=== PATIENT | male | born 2005 | race Asian ===

== ENCOUNTER 2024-11-01 22:24 | Outpatient (REF) | payer OTHER, SELFPAY | END 2024-11-01 22:25 | disposition home or self-care (01) | LOC: LBN 22:24 | PROVIDERS: Visit Provider Nurse Practitioner Family | DX: S91.301A Unspecified open wound, right foot, initial encounter (principal) | CPT/HCPCS: 87070; 87205 ==

== ENCOUNTER → 2025-01-27 14:25 | Outpatient (CLI) | payer OTHER, SELFPAY ==
--- NOTE | 2025-01-27 15:43 | DI.RAD_ITS ---
Exam(s) XR FOOT RT COMPLETE EXAM: XR FOOT RT COMPLETE CLINICAL HISTORY: Rule out osteomyelitis, open wound rt foot, S91.301A. TECHNIQUE: 2D digital imaging was performed. Three views. COMPARISON: No exams were available for comparison FINDINGS: BONES: No acute fracture is present. No bony destructive lesion is seen. JOINTS: No dislocation present. SOFT TISSUE: Swelling around 1st MTP joint. Swelling lateral to the base of the 5th metatarsal with overlying bandage. No abnormal gas collection or foreign body. IMPRESSION: Soft tissue swelling. No plain film evidence for osteomyelitis DATA REPOSITORY: RADIATION DOSE DELIVERED:
== END ==
LOC: DI 14:26
PROVIDERS: Visit Provider Surgery
DX: S91.301A Unspecified open wound, right foot, initial encounter (principal)
CPT/HCPCS: 73630

== ENCOUNTER 2025-01-27 14:35 | Outpatient (REF) | payer OTHER, SELFPAY | END 2025-01-27 14:36 | disposition home or self-care (01) | LOC: LBN 14:35 | PROVIDERS: Visit Provider Podiatrist | DX: L97.512 Non-pressure chronic ulcer of other part of right foot with fat layer exposed (principal); S91.301A Unspecified open wound, right foot, initial encounter | CPT/HCPCS: 87077; 87070; 87075; 87186; 87205 ==

== ENCOUNTER 2025-02-01 11:39 | Inpatient (IN) | payer OTHER, SELFPAY ==
--- NOTE | 2025-02-01 | DI.MRI_ITS ---
Exam(s) MR LOWER EXTREMITY RT WO/W EXAM: MR LOWER EXTREMITY RT WO/W CLINICAL HISTORY: ulcer R 5th metatarsal, bone palpable, infected. TECHNIQUE: Multiplanar multisequence MRI was performed. CONTRAST MATERIAL: IV Contrast: 10 mL of Dotarem contrast administered. COMPARISON: CR XR FOOT RT COMPLETE from 01/27/2025 FINDINGS: There is artifact seen in the region of the 3rd tarsometatarsal joint without correlate on the patient's x-ray from 01/27/2025. BONES/JOINTS: No evidence of fracture. There is hypointense signal seen on the T1 weighted images in the base of the 5th metatarsal bone. There is corresponding hyperintense signal seen on the T2 weighted images in this region. There is a ulcer on the plantar and lateral aspect of the foot which appears in contact with the adjacent 5th metatarsal bone. There is edema seen in the surrounding soft tissues at the ulcer. There is a peripherally enhancing fluid collection measuring 0.4 x 1.0 cm lateral to the base of the 5th metatarsal bone (series [id number], image 14). The finding is suspicious for small abscess. No joint space narrowing identified. No joint effusion identified. LIGAMENTS: The medial and lateral collateral ligaments are intact. MUSCULOTENDINOUS STRUCTURES: Visualized portion of the planar fascia is unremarkable. There is no evidence of a tendon tear. SOFT TISSUES: Please see the above section under BONES/JOINTS. ENHANCEMENT: Following contrast administration, there is contrast enhancement involving the proximal 3rd of the 5th metatarsal bone. The findings are most suggestive of osteomyelitis. There is mild enhancement surrounding the peroneus brevis tendon at its insertion site onto the 5th metatarsal bone. OTHER FINDINGS: None. IMPRESSION: 1. Ulcer in the subcutaneous tissues at the lateral aspect of the foot adjacent to the 5th metatarsal. 2. Enhancement involving the proximal 3rd of the 5th metatarsal concerning for osteomyelitis. 3. 0.4 x 1.0 cm peripherally enhancing fluid collection lateral to the base of the 5th metatarsal suspicious for small abscess. 4. Mild enhancement surrounding the peroneus brevis tendon at its insertion site onto the 5th metatarsal concerning for infection. 5. Artifact seen in the soft tissues adjacent to the 3rd tarsometatarsal joint without corresponding artifact seen on the plain film. Please correlate clinically. It is located some distance from the ulcer and is likely unrelated. This may reflect prior surgery. DATA REPOSITORY:
[2025-02-01 12:10] VITALS: BP 136/56; PULSE 109; RESP 17; TEMP 36.5; O2SAT 98
[2025-02-01 12:15] VITALS: BP 136/56; PULSE 109; RESP 17; TEMP 36.5; O2SAT 98
--- NOTE | 2025-02-01 12:20 | W.SURGCON ---
Date of service: 02/01/25 Time of Service: 12:21 Assessment and Plan Assessment and plan (1) Ulcer of right foot with fat layer exposed: Status: Acute Assessment and plan: Patient is a 19-year-old male who presents for ongoing evaluation of a wound of his right foot. He has undergone previous debridement and cultures showing pansensitive staph. His wound packing was removed yesterday in the clinic and there was concern for surrounding erythema and edema so he was instructed to present today for further evaluation in the clinic. On discussion with him today he does endorse some decreased appetite but otherwise denies fevers, chills, nausea, vomiting. On exam today he has ongoing erythema and edema of the dorsal aspect of the right foot. There is no evidence of purulence in the wound suggesting the need for further washout or debridement. Given his continuation of symptoms on antibiotics at home it was recommended that he be admitted to the hospital for ongoing wound care and IV antibiotics. Would recommend MRI of right foot to evaluate further for osteomyelitis given chronicity of the wound and ongoing erythema. No plan for further operative debridement at this time, however would recommend packing to right foot wound at least BID and as needed due to saturation. Appreciate hospitalists assistance with admission and IV antibiotics. (2) Open wound of right foot: Status: Acute History of Present Illness Narrative: Patient is a 19-year-old male who has had ongoing evaluation of a chronic wound of the underside of his right foot in the surgical office along with podiatry. He underwent debridement, culture and previous packing of the wound. He also underwent a course of Keflex at home. He was evaluated yesterday in the surgery clinic and given concern for surrounding erythema it was recommended that he follow-up again today for further evaluation. He denies any subjective fevers. He does note however decreased appetite. He has no sensation in this area so denies any pain associated with this. His dressing was changed today in the office. Given ongoing erythema and edema of the wound with oral antibiotics the recommendation was made that he present to the hospital for admission for IV antibiotics and ongoing wound care. Review of Systems Constitutional Constitutional: Denies chills, Denies fatigue and Denies fever(s) Cardiovascular Cardiovascular: Denies chest pain and Denies dyspnea Respiratory Respiratory: Denies dyspnea Gastrointestinal Gastrointestinal: Denies abdominal pain, Denies nausea and Denies vomiting Integumentary/Breasts Skin/Breast: Denies new lesions and Denies rash Endocrine Endocrine: Denies fatigue PFSH All Active Problems Pes cavus of right foot (Acute) Ulcer of right foot with fat layer exposed (Acute) Open wound of right foot (Acute) Hx of spina bifida (Acute) reports decreased sensation to feet and altered gait. Wears orthotics Social History Smoking/Tobacco Use Status: Never Smoking risk assessment performed?: Yes Alcohol Intake: current Alcohol Intake frequency: other Housing: apartment Do you feel safe at home: Yes Do you feel safe in your relationship?: Yes Exam Narrative Exam Narrative: General: Well appearing, no acute distress. Skin: Good turgor HEENT: Normocephalic, atraumatic CV: Regular rate Lungs: Bilateral equal chest rise, non-labored breathing Extremities: Warm, well perfused, right foot wound on plantar aspect of 5th metatarsal with serosanguinous drainage, surrounding edema and erythema of dorsal aspect of foot Psychiatric: Alert and oriented, normal mood and affect Results Last Vital Signs Temp 36.5 C 02/01/25 12:10 Pulse 109 H 02/01/25 12:10 Resp 17 02/01/25 12:10 BP 136/56 L 02/01/25 12:10 Pulse Ox 98 02/01/25 12:10 Labs 02/01/25 11:42 02/01/25 11:42
[2025-02-01] MEDS: Normal Saline Flush 10 ML SYR IVP ×3 (13:04→15:55)
[2025-02-01] MEDS: Gadoterate meglumine 20 ML SYRINGE IJ (13:04)
--- NOTE | 2025-02-01 13:59 | PHA.REVIEW2 ---
Pharmacy Admission Review Admission Clinical Review Admission Pharmacy Review: Ulcer of right foot with fat layer exposed (Acute) Open wound of right foot (Acute) No Known Allergies Allergy (Unverified 02/01/25 10:24) Resuscitation Status Full Code Height 5 ft 6 in Weight 51.029 kg Pharmacy Admission Review Renal Dosing Medications needing adjustments: Reviewed (labs pending) List of meds needing interventions: May need to adjust enoxaparin and cefazolin doses once labs come back Anticoagulation DVT Prophylaxis: Intervened (Per provider - active infection and immobility make him moderate risk) Medications: Enoxaparin (40mg daily) Relevant Labs Electrolytes, C-Reactive P, ESR: Reviewed (labs pending) Cardiac Review BP, HR, EF%: Reviewed (BP 136/56, HR 109) QTc Review QTc: Reviewed (No EKG on file) IV to PO Switch IV Medications: Reviewed (cefazolin) Home Meds Home Med List reviewed: Reviewed Relevent Home Meds Not ordered & why?: oxybutynin - will reach out to provider to see if this is on hold Current Meds Current Medication Order Review: Reviewed Pharmacy Antibiotic Review Relevant Labs: Wound culture from 01/27/25 Surgical Aerobic Culture Preliminary 02/01/25-0850 Day 1 Result ISOLATES BELOW DAY 1 GROWTH MODERATE GROWTH ISOLATE 1 APPEARANCE Mixed Gram Positive Shasha Day 2 Result ISOLATES BELOW DAY 2 GROWTH MODERATE GROWTH ISOLATE 1 APPEARANCE Gram Positive Shasha ISOLATE 1 ACTION SUSCEPTIBILITY TO FOLLOW DAY 2 GROWTH MODERATE GROWTH ISOLATE 2 APPEARANCE Normal Shasha Day 3 Result ISOLATES BELOW DAY 3 GROWTH MODERATE GROWTH ISOLATE 1 APPEARANCE Gram Positive Shasha DAY 3 GROWTH MODERATE GROWTH ISOLATE 2 APPEARANCE Normal Shasha Day 4 Result ISOLATES BELOW DAY 4 GROWTH MODERATE GROWTH ISOLATE 1 APPEARANCE Gram Positive Shasha DAY 4 GROWTH MODERATE GROWTH ISOLATE 2 APPEARANCE Normal Shasha Organism 1 Staphylococcus aureus GROWTH MODERATE GROWTH Organism 2 Normal Shasha GROWTH MODERATE GROWTH Stap grecia Result Gentamicin S Trimethoprim/Sulfamethoxazole S Daptomycin S Erythromycin S Oxacillin S Vancomycin S Pharmacy Antibiotic Activity: C/S review and Reviewed, no change Comments: Patient is on cefazolin, day 1, for cellulitis.
--- NOTE | 2025-02-01 14:42 | W.PM.HP.N ---
Date of service: 02/01/25 Time of Service: 16:23 Assessment and Plan Assessment and plan (1) Ulcer of right foot with fat layer exposed: Status: Acute Assessment and plan: As per HPI Growing pansensitive MSSA On Cefazolin IV MRI RLE: IMPRESSION: 1. Ulcer in the subcutaneous tissues at the lateral aspect of the foot adjacent to the 5th metatarsal. 2. Enhancement involving the proximal 3rd of the 5th metatarsal concerning for osteomyelitis. 3. 0.4 x 1.0 cm peripherally enhancing fluid collection lateral to the base of the 5th metatarsal suspicious for small abscess. 4. Mild enhancement surrounding the peroneus brevis tendon at its insertion site onto the 5th metatarsal concerning for infection. 5. Artifact seen in the soft tissues adjacent to the 3rd tarsometatarsal joint without corresponding artifact seen on the plain film. Please correlate clinically. It is located some distance from the ulcer and is likely unrelated. This may reflect prior surgery. CBC - no actionable findings will trend CMP- unremarkable -will trend CRP 2.16- will trend Daily dressing change with packing Surgery consult - Seen by Dr Andino today Orthopedic consult (2) Cellulitis of right foot: Status: Acute Assessment and plan: As above (3) Hx of spina bifida: Status: Acute Assessment and plan: Noted - and most likely linked to reduced sensation to feet Discharge Planning Discharge Planning: Not yet determined History of Present Illness History of Present Illness Chief Complaint: Right foot wound and cellulitis Narrative: This 19 yo male patient with a past medical history of spina bifida and loss of sensation to his lower extremities, right foot wound starting 4 months ago after he pulled the skin off (?from ulcer caused by a stone in his shoe) presented today for direct admission after being seen in the outpatient surgical clinic by Dr. Shane garcia s/p debridment on 01/31/25. The patient had been seen since 11/24/24 at [facility] surgical associate and was seen by Dr. Woodard on 01/27/25 with completion of excisionally debridement , removal of all necrotic tissue, full thickness including subcutaneous tissue and dressed; cephalexin ordered a the time. Dr Andino saw the patient on 01/31 25 for ongoing erythema and edema; irrigation with sterile saline completed with new wound packing. Wound grew pansensitive MSSA. Blood work and MRI ordered and results pending. The patient denied fever, chills, headache , change in vision, chest pain, SOB, nausea, vomiting, diarrhea or dysuria. Reporting reduced mobility and following non-weight bearing instruction fro podiatry. Full code status confirmed. Review of Systems All systems reviewed & are unremarkable except as noted in HPI and below PFSH All Active Problems (Updated 02/01/25 @ 16:38 by Griselda Gamble APRN) Cellulitis of right foot (Acute) Pes cavus of right foot (Acute) Ulcer of right foot with fat layer exposed (Acute) Open wound of right foot (Acute) Hx of spina bifida (Acute) reports decreased sensation to feet and altered gait. Wears orthotics Social History Smoking/Tobacco Use Status: Never Smoking risk assessment performed?: Yes Alcohol Intake: current Alcohol Intake frequency: other Housing: apartment Do you feel safe at home: Yes Do you feel safe in your relationship?: Yes Meds Allergies and Home Medications Allergies Allergy/AdvReac Type Severity Reaction Status Date / Time No Known Allergies Allergy Unverified 02/01/25 10:24 Home Medications ?Medication ?Instructions ?Recorded ?Confirmed ?Type aspirin 325 mg tablet 325 mg PO DAILY PRN 02/01/25 02/01/25 History oxybutynin chloride 5 mg tablet 5 mg PO DAILY 02/01/25 02/01/25 History polyethylene glycol 3350 17 17 g PO DAILY 02/01/25 02/01/25 History gram/dose oral powder (Miralax) Exam Narrative Exam Narrative: 19 year old male looking younger than stated age, in no acute distress, unlabored breathing , clear lungs, S1, S2 regular no murmur , abdomen is non-distended , soft and non-tender, bowel sounds are present, R foot with distal erythema and edema - wound to lateral aspect of sole below the fifth metatarsal bone with mepilex with minimal sero-sanguinous dressing , packing in place and wound periphery appears navy in color - no mal odor and purulent drainage Results Labs 02/01/25 16:05 02/01/25 16:05 Last Vital Signs Temp 36.5 C 02/01/25 12:15 Pulse 109 H 02/01/25 12:15 Resp 17 02/01/25 12:15 BP 136/56 L 02/01/25 12:15 Pulse Ox 98 02/01/25 12:15 VTE Prohylaxis Risk Level: Moderate/High Risk Contraindications: None Prophylaxis: Pharmacologic (LMW heparin for primary VTE prevention in low-weight patients (=55 kg or body mass index [BMI] <18 kg/m2) as per UTD) PAWSS Have you Been Recently Intoxicated or Drunk Within the Last 30 days?: No Have you Ever Experienced Previous Episodes of Alcohol Withdrawal?: No Have you ever Experienced Withdrawal Seizures?: No Have you ever Experienced Delirium Tremens(DT)s?: No Have you ever undergone Alcohol Rehabilitation Treatment (i.e, inpt ot outpatient treatment programs)?: No Have you ever Experienced Blackouts?: No Have you ever Combined Alcohol with other Downers within the last 90 days?: No Have you ever Combined Alcohol with any other Substance of Abuse during the last 90 days?: No Positive Blood Alcohol level on Presentation? [PCS.BAL]: No Evidence of Increased Autonomic Activity (i.e. HR>120, tremor, sweating, agitation, nausea)?: No Result: 0 Time Spent Time spent with Patient: >75 minutes Time was spent: preparing to see the patient(eg.review tests), obtaining and/or reviewing separately otained hiistory, ordering medications,tests, procedures, referring, communicating with other health residential caregiver, indepentently interpreting results, counseling the patient, care coordination and other
[2025-02-01] MEDS: ceFAZolin 2 GM/50 ML BAG IVPB (14:51)
--- NOTE | 2025-02-01 15:38 | W.SURGCON ---
Date of service: 02/01/25 Time of Service: 15:38 History of Present Illness History of Present Illness Chief Complaint: Chronic foot wound Narrative: Aiden is 19 years old. He is well-known to me from his outpatient visits. He developed a wound on the lateral, and bottom portion of his foot, essentially the underside of the fifth metatarsal head back in November. The exact mechanism is uncertain, but he has some gait abnormalities associated with history of spina bifida, and is insensate in the foot, and suspects this may have been some minor trauma related to his foot wear, and some pressure ulceration. He was first seen in our office in the midportion of November. PFSH All Active Problems Pes cavus of right foot (Acute) Ulcer of right foot with fat layer exposed (Acute) Open wound of right foot (Acute) Hx of spina bifida (Acute) reports decreased sensation to feet and altered gait. Wears orthotics Social History Smoking/Tobacco Use Status: Never Smoking risk assessment performed?: Yes Alcohol Intake: current Alcohol Intake frequency: other Housing: apartment Do you feel safe at home: Yes Do you feel safe in your relationship?: Yes Results Last Vital Signs Temp 97.7 F 02/01/25 12:15 Pulse 109 H 02/01/25 12:15 Resp 17 02/01/25 12:15 BP 136/56 L 02/01/25 12:15 Pulse Ox 98 02/01/25 12:15 Labs 02/01/25 11:42 02/01/25 11:42
[2025-02-01] MEDS: Normal Saline 100 ML (15:39)
[2025-02-01 16:11] LABS: Abs Immature Grans 0.07 10^3/uL (0.0-0.06); HCT 43.1 % (40.0-50.0); HGB 14.5 g/dL (13.5-17.5); Immature Grans % 0.8 %; MCH 28.5 pg (27.0-33.0); MCHC 33.6 % (32.0-36.0); MCV 85 fL (80-95); MPV 8.5 fL (8.0-11.0); Platelet Count 308 10^3/uL (130-400); RBC 5.09 10^6/uL (4.36-5.78); RDW 11.7 % (11.8-14.1); RDW-SD 35.7 fL; WBC 8.62 10^3/uL (4.4-10.8)
[2025-02-01 16:34] LABS: C-Reactive Protein 2.16 mg/dL (<=0.50)
[2025-02-01 17:13] LABS: ALT 16 U/L (10-49); AST 21 U/L (<34); Albumin 4.6 g/dL (3.2-5.0); Alkaline Phosphatase 72 U/L (46-116); Anion Gap 8.4 mmol/L (3-11); Bilirubin, Total 0.4 mg/dL (0.2-1.2); CO2 28.6 mmol/L (20.0-31.0); Calcium 9.4 mg/dL (8.3-10.6); Chloride 104 mmol/L (98-107); Glucose 94 mg/dL (74-106); Potassium 4.5 mmol/L (3.5-5.1); Sodium 141 mmol/L (136-145); Total Protein 8.2 g/dL (5.7-8.2)
[2025-02-01 17:37] LABS: BUN 14 mg/dL (9-23)
[2025-02-01] MEDS: Polyethylene Glycol 3350 17 GM PACKET PO (20:15)
[2025-02-01] MEDS: PIPERACILLIN/TAZO 3.375 GM in Normal Saline 50 ML IVPB (20:16)
[2025-02-01 20:33] VITALS: BP 114/62; PULSE 73; TEMP 37; O2SAT 100
[2025-02-01] MEDS: Oxybutynin 5 MG TAB PO (21:57)
[2025-02-02] MEDS: PIPERACILLIN/TAZO 3.375 GM in Normal Saline 50 ML IVPB ×4 (04:05→22:34)
[2025-02-02 06:53] LABS: Abs Immature Grans 0.09 10^3/uL (0.0-0.06); HCT 38.9 % (40.0-50.0); HGB 13.2 g/dL (13.5-17.5); Immature Grans % 1.1 %; MCH 28.9 pg (27.0-33.0); MCHC 33.9 % (32.0-36.0); MCV 85 fL (80-95); MPV 8.7 fL (8.0-11.0); Platelet Count 262 10^3/uL (130-400); RBC 4.57 10^6/uL (4.36-5.78); RDW 11.7 % (11.8-14.1); RDW-SD 35.9 fL; WBC 8.05 10^3/uL (4.4-10.8)
[2025-02-02 06:59] LABS: ESR 16 mm/hr (0-15)
[2025-02-02 07:06] LABS: C-Reactive Protein 1.18 mg/dL (<=0.50)
[2025-02-02 07:07] LABS: Anion Gap 8.3 mmol/L (3-11); BUN 15 mg/dL (9-23); CO2 26.7 mmol/L (20.0-31.0); Calcium 8.9 mg/dL (8.3-10.6); Chloride 107 mmol/L (98-107); Glucose 92 mg/dL (74-106); Potassium 4.3 mmol/L (3.5-5.1); Sodium 142 mmol/L (136-145)
[2025-02-02 08:14] VITALS: BP 117/71; PULSE 67; RESP 17; TEMP 37.1; O2SAT 98
--- NOTE | 2025-02-02 08:20 | W.PM.PROGNOT ---
Date of Service Date of service: 02/02/25 Time of Service: 11:17 Assessment and Plan Assessment and plan (1) Cellulitis of right foot: Status: Acute Assessment and plan: Patient is a 19-year-old male who presents for ongoing evaluation of a wound of his right foot. He has undergone previous debridement and cultures showing pansensitive staph. He was admitted to the hospital yesterday given concern for ongoing erythema and edema of the foot related to this wound. He remains afebrile and hemodynamically stable overnight. On exam today the erythema and edema of the dorsal aspect of the foot is slightly improved. He did have an MRI yesterday concerning for osteomyelitis. His case was discussed with orthopedics who did not feel as though further debridement was necessary at this time and to continue antibiotics and local wound care and monitor closely. Would recommend ongoing twice daily and as needed packing changes and continuing IV antibiotics. (2) Ulcer of right foot with fat layer exposed: Status: Acute Subjective Subjective Interval history since last seen: He states he is doing well this morning. Denies any fevers or chills overnight. He has been able to tolerate a regular diet. He notes that the swelling and redness of his foot has improved. Exam Narrative Exam Narrative: General: Well appearing, no acute distress. Skin: Good turgor HEENT: Normocephalic, atraumatic CV: Regular rate Lungs: Bilateral equal chest rise, non-labored breathing Extremities: Warm, well perfused, right foot wound on plantar aspect of 5th metatarsal with dressing in place, improved surrounding edema and erythema of dorsal aspect of foot Psychiatric: Alert and oriented, normal mood and affect Objective Last Vital Signs Temp 37.1 C 02/02/25 08:14 Pulse 67 02/02/25 08:14 Resp 17 02/02/25 08:14 BP 117/71 02/02/25 08:14 Pulse Ox 98 02/02/25 08:14 Laboratory Results - last 24 hr 02/01/25 02/02/25 16:05 06:23 WBC 8.62 8.05 RBC 5.09 4.57 Hgb 14.5 13.2 L Hct 43.1 38.9 L MCV 85 85 MCH 28.5 28.9 MCHC 33.6 33.9 RDW 11.7 L 11.7 L Plt Count 308 262 MPV 8.5 8.7 Immature Gran % 0.8 1.1 Neutrophils % 71.5 62.8 Lymphocytes % 14.0 16.8 Monocytes % 5.9 6.3 Eosinophils % 6.8 11.8 Basophils % 1.0 1.2 Nucleated RBC % 0.0 0.0 Absolute Neutrophils 6.15 5.05 Absolute Lymphocytes 1.21 1.35 Absolute Monocytes 0.51 0.51 Absolute Eosinophils 0.59 0.95 H Absolute Basophils 0.09 0.10 ESR 16 H Sodium 141 142 Potassium 4.5 4.3 Chloride 104 107 Carbon Dioxide 28.6 26.7 Anion Gap 8.4 8.3 BUN 14 15 Creatinine 0.90 0.97 Est GFR (CKD-EPI 2020) 105.55 96.81 Glucose 94 92 Calcium 9.4 8.9 Total Bilirubin 0.4 AST 21 ALT 16 Alkaline Phosphatase 72 C-Reactive Protein 2.16 H 1.18 H Total Protein 8.2 Albumin 4.6 PAWSS Have you Been Recently Intoxicated or Drunk Within the Last 30 days?: No Have you Ever Experienced Previous Episodes of Alcohol Withdrawal?: No Have you ever Experienced Withdrawal Seizures?: No Have you ever Experienced Delirium Tremens(DT)s?: No Have you ever undergone Alcohol Rehabilitation Treatment (i.e, inpt ot outpatient treatment programs)?: No Have you ever Experienced Blackouts?: No Have you ever Combined Alcohol with other Downers within the last 90 days?: No Have you ever Combined Alcohol with any other Substance of Abuse during the last 90 days?: No Positive Blood Alcohol level on Presentation? [PCS.BAL]: No Evidence of Increased Autonomic Activity (i.e. HR>120, tremor, sweating, agitation, nausea)?: No Result: 0 VTE Prohylaxis Risk Level: Moderate/High Risk Contraindications: None Prophylaxis: Pharmacologic (LMW heparin for primary VTE prevention in low-weight patients (=55 kg or body mass index [BMI] <18 kg/m2) as per UTD) Time Spent with Patient Time Spent with Patient: <25 minutes Time was spent: preparing to see the patient(eg.review tests), obtaining and/or reviewing separately otained hiistory, counseling the patient and care coordination
[2025-02-02] MEDS: Enoxaparin 30 MG/0.3 ML SYR SC (10:12)
--- NOTE | 2025-02-02 10:23 | INITIAL_ITS ---
Date of service: 02/02/25 Time of Service: 10:23 Care Management Initial Assmt Initial Assessment Reason for Hospitalization: cellulitis foot wound Functional Status/Living Situation Patient Presentation: Aiden was sitting up on the edge of his bed when CM met with him. He had a friend visiting, who he stated that he is comfortable with her staying in the room during the conversation. 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 He expressed some frustration about being in the hospital, but was very pleasant and appropriate. He stated that he has been out of work due to the foot injury, and that he already received a note from the podiatry office; CM offered a return to work note, if needed. Aiden stated that he does not have a PCP, but is actively followed by podiatry. CM discussed the process for him to obtain a PCP, but also informed him that he may have a hospital follow up with the provider who was instructional paraprofessional when he arrived, Caitie Beltran from [facility]. Per provider, Aiden is currently on IV antibiotics, and his abx course is unclear at this time. An ortho consult was placed to help determine/manage his plan of care. Aiden is looking forward to returning home, and likely will not require community services, dependent on his abx course. CM will continue to follow. 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) Instrumental Activities of Daily Living (ADLs): Independent Medications Medication Management: No Issues/Barriers identified Advance Directives Advance Directives: Do you have an Advance Directive: N , 12:35 AD On File at [facility]: N 02/01/25, 12:35 Date Asked 02/01/25 02/01/25, 12:35 AD Date Reviewed COLST On File at [facility] COLST Date Scanned Code Status Resuscitation Status Full Code Insurance Coverage/Financial Issues Insurance: [employer] systems Care Team Visit Care Team Role Provider Type Griselda Gamble APRN MD [facility] STAFF PHYSICIAN Unknown Unknown Primary Care Provider STAFF PHYSICIAN Gavin Santos MD Other Providers [facility] STAFF PHYSICIAN Deysi Lynn MD Other Providers [facility] STAFF PHYSICIAN Aiden Arriaga Admit Provider [facility] STAFF PHYSICIAN Attending Provider Discharge Potential Discharge Needs: PCP F/U Appt (bilingual call center representative provider for F/U appt, Caitie Beltran, [facility]) and Surgical F/U Appt Anticipated Barriers to Discharge: Medical Status Patient/Family Education Needs: Review discharge instructions, discuss Ask Me Three Transportation: Private vehicle Plan: Aiden'rosaura hospital course is not clear at this time, awaiting determination of antibiotic course. He will likely return home with no new services once medically stable. He will transport home via private vehicle by a friend. He will follow up with podiatry and his discharge plan of care. CM will continue to follow. Social Determinants of Health Screening Social Determinants of health last assessed in clinic: 02/02/25 Will the Patient Participate in the Screening?: Yes Do you worry about having a steady place to live?: no Problems where you live: no known problems In the past 12 months, have you had to go without electric, gas, oil or water in your home?: no 1. Within the past 12 months, we worried whether our food would run out before we got money to buy more.: Don't know/refused 2. Within the past 12 months, the food we bought just didn't last and we didn't have money to get more.: Don't know/refused Has lack of transportation kept you from medical appointments or from doing things needed for daily living?: no Has anyone in your life made you feel unsafe or unsupported?: no How hard is it for you to pay for the very basics like food, housing, medical care, and heating? Would you say it is:: Not hard at all Do you want help finding or keeping work or a job?: I do not need or want help If for any reason you need help with day-to-day activities such as bathing, preparing meals, shopping, managing finances, etc., do you get the help you need?: I don?t need any help How often do you feel lonely or isolated from those around you?: Never Do you speak a language other than Italian at home?: No PFSH All Active Problems (Updated 02/01/25 @ 16:38 by Griselda Gamble APRN) Cellulitis of right foot (Acute) Pes cavus of right foot (Acute) Ulcer of right foot with fat layer exposed (Acute) Open wound of right foot (Acute) Hx of spina bifida (Acute) reports decreased sensation to feet and altered gait. Wears orthotics Social History Smoking/Tobacco Use Status: Never Smoking risk assessment performed?: Yes Alcohol Intake: current Alcohol Intake frequency: other Housing: apartment Do you feel safe at home: Yes Do you feel safe in your relationship?: Yes
--- NOTE | 2025-02-02 11:14 | W.PM.PROGNOT ---
Date of Service Date of service: 02/02/25 Time of Service: 11:14 Assessment and Plan Assessment and plan (1) Ulcer of right foot with fat layer exposed: Start date: 02/02/25 Start time: 16:53 Status: Acute Assessment and plan: As per HPI Growing pansensitive staph aureus initially in addition to GPC anaerobes now On Cefazolin IV initially - transition to Zosyn 02/01/25 MRI RLE: IMPRESSION: 1. Ulcer in the subcutaneous tissues at the lateral aspect of the foot adjacent to the 5th metatarsal. 2. Enhancement involving the proximal 3rd of the 5th metatarsal concerning for osteomyelitis. 3. 0.4 x 1.0 cm peripherally enhancing fluid collection lateral to the base of the 5th metatarsal suspicious for small abscess. 4. Mild enhancement surrounding the peroneus brevis tendon at its insertion site onto the 5th metatarsal concerning for infection. 5. Artifact seen in the soft tissues adjacent to the 3rd tarsometatarsal joint without corresponding artifact seen on the plain film. Please correlate clinically. It is located some distance from the ulcer and is likely unrelated. This may reflect prior surgery. CBC - no actionable findings will trend Trend metabolic panel and CBC CRP 2.16- will trend Daily dressing change with packing Ongoing surgery consult - Seen by Dr Lynn-BID dressing change Orthopedic consult- IV antibiotics , no recommendation for Sx (2) Cellulitis of right foot: Start date: 02/02/25 Start time: 16:54 Status: Acute Assessment and plan: As above (3) Hx of spina bifida: Start date: 02/02/25 Start time: 16:54 Status: Acute Assessment and plan: Noted - and most likely linked to reduced sensation to feet Subjective Subjective Patient reports: no new complaints, tolerating liquids well, tolerating a regular diet, voiding w/o difficulty and bowel movement; denies nausea, vomiting, shortness of breath or fever Exam Narrative Exam Narrative: 19 year old male looking younger than stated age, w/o acute distress,, S1, S2 regular no murmur , abdomen is non-distended , soft and non-tender, bowel sounds are present, resolving erythema to distal R foot with improving edema - DCI dressing to wound to lateral aspect of sole below the fifth metatarsal bone with mepilex - no malodor Objective Last Vital Signs Temp 37.1 C 02/02/25 08:14 Pulse 67 02/02/25 08:14 Resp 17 02/02/25 08:14 BP 117/71 02/02/25 08:14 Pulse Ox 98 02/02/25 08:14 Laboratory Results - last 24 hr 02/01/25 02/02/25 16:05 06:23 WBC 8.62 8.05 RBC 5.09 4.57 Hgb 14.5 13.2 L Hct 43.1 38.9 L MCV 85 85 MCH 28.5 28.9 MCHC 33.6 33.9 RDW 11.7 L 11.7 L Plt Count 308 262 MPV 8.5 8.7 Immature Gran % 0.8 1.1 Neutrophils % 71.5 62.8 Lymphocytes % 14.0 16.8 Monocytes % 5.9 6.3 Eosinophils % 6.8 11.8 Basophils % 1.0 1.2 Nucleated RBC % 0.0 0.0 Absolute Neutrophils 6.15 5.05 Absolute Lymphocytes 1.21 1.35 Absolute Monocytes 0.51 0.51 Absolute Eosinophils 0.59 0.95 H Absolute Basophils 0.09 0.10 ESR 16 H Sodium 141 142 Potassium 4.5 4.3 Chloride 104 107 Carbon Dioxide 28.6 26.7 Anion Gap 8.4 8.3 BUN 14 15 Creatinine 0.90 0.97 Est GFR (CKD-EPI 2020) 105.55 96.81 Glucose 94 92 Calcium 9.4 8.9 Total Bilirubin 0.4 AST 21 ALT 16 Alkaline Phosphatase 72 C-Reactive Protein 2.16 H 1.18 H Total Protein 8.2 Albumin 4.6 PAWSS Have you Been Recently Intoxicated or Drunk Within the Last 30 days?: No Have you Ever Experienced Previous Episodes of Alcohol Withdrawal?: No Have you ever Experienced Withdrawal Seizures?: No Have you ever Experienced Delirium Tremens(DT)s?: No Have you ever undergone Alcohol Rehabilitation Treatment (i.e, inpt ot outpatient treatment programs)?: No Have you ever Experienced Blackouts?: No Have you ever Combined Alcohol with other Downers within the last 90 days?: No Have you ever Combined Alcohol with any other Substance of Abuse during the last 90 days?: No Positive Blood Alcohol level on Presentation? [PCS.BAL]: No Evidence of Increased Autonomic Activity (i.e. HR>120, tremor, sweating, agitation, nausea)?: No Result: 0 VTE Prohylaxis Risk Level: Moderate/High Risk Contraindications: None Prophylaxis: Pharmacologic (LMW heparin for primary VTE prevention in low-weight patients (=55 kg or body mass index [BMI] <18 kg/m2) as per UTD) Time Spent with Patient Time Spent with Patient: >50 minutes Time was spent: preparing to see the patient(eg.review tests), obtaining and/or reviewing separately otained hiistory, ordering medications,tests, procedures, referring, communicating with other health client care coordinator, indepentently interpreting results, counseling the patient, care coordination and other
[2025-02-02] MEDS: Normal Saline Flush 10 ML SYR IVP (16:59)
[2025-02-02] MEDS: Oxybutynin 5 MG TAB PO (20:33)
[2025-02-02 20:42] VITALS: BP 120/74; PULSE 84; RESP 16; TEMP 36.8; O2SAT 97
[2025-02-03] MEDS: PIPERACILLIN/TAZO 3.375 GM in Normal Saline 50 ML IVPB (04:45)
[2025-02-03 08:08] VITALS: BP 118/60; PULSE 71; RESP 16; TEMP 37.2; O2SAT 99
[2025-02-03] MEDS: Enoxaparin 30 MG/0.3 ML SYR SC (09:33)
--- NOTE | 2025-02-03 11:30 | DSE_ITS ---
Date of service: 02/03/25 Time of Service: 11:30 DS: Diagnosis Discharge Diagnosis (1) Osteomyelitis of right foot: Status: Acute (2) Ulcer of right foot with fat layer exposed: Status: Acute (3) Cellulitis of right foot: Status: Acute (4) Hx of spina bifida: Status: Chronic Discharge Plan Disposition Patient Disposition: Home Anticipated Discharge Date/Time: 02/03/25 13:00 Condition: Improving Discharge Details Reason For Visit: Cellulitis Foot Wound Admit Date/Time: 02/01/25 11:39 Admit Provider: Aiden Arriaga Attending Provider: Aiden Arriaga Primary Care Provider: Unknown,Unknown Hospital Course Hospital Course: This 19 yo male patient with a past medical history of spina bifida and loss of sensation to his lower extremities, right foot wound starting 4 months ago after he pulled the skin off (?from ulcer caused by a stone in his shoe) presented on 02/01/2025 with a direct admission status -post outpatient surgical clinic visit with Dr. Lynn for a follow-up on the wound debridement completed on 01/31/25.. The patient had been seen since 11/24/24 at [facility] seen by Dr. Woodard on 01/27/25 with completion of excisionally debridement , removal of all necrotic tissue, full thickness including subcutaneous tissue and dressed; cephalexin ordered a the time. Dr Andino saw the patient on 01/31 25 for ongoing erythema and edema; irrigation with sterile saline completed with new wound packing. Wound grew pansensitive staphylococcus aureus. The patient denied fever, chills or other symptomatology pointing to systemic infection and he was admitted to the medical surgical floor by the hospitalist service and started on cefazolin. MRI showed proximal 3rd of the 5th metatarsal concerning for osteomyelitis, a 0.4 x 1.0 cm peripherally enhancing fluid collection lateral to the base of the 5th metatarsal suspicious for small abscess, and mild enhancement surrounding the peroneus brevis tendon at its insertion site onto the 5th metatarsal concerning for infection. Orthopedic consultation with no recommendation for surgery but modified antibiotics to piperacillin tazobactam. Wound culture grew gram positive anaerobes and gram negative rods and antibiotic regimen adjusted to levofloxacin, rifaximin and metronidazole on which the patient will be discharged. Ongoing surgical consultation with no plan for surgery at this time, but patient could contact the office if concerns developed. The patient has a follow-up appointment with Dr. Woodard on 02/08/2025 for further management and will need a follow-up with his new PCP as soon as established with the assistance of the care management team. The patient is hemodynamically stable, afebrile and has to maintain non-weight bearing precautions as instructed by podiatry and continue twice a day dressing change as per completed education by RN after discharge today. Discussed with Dr. Cooper Home Meds and New Rx's Prescriptions: New levofloxacin 750 mg Tablet 750 mg PO QAM Qty: 30 0RF Rx Instructions: Refill for completion of 6 weeks of therapy as per Electronic Integrated Systems Mechanic metronidazole 500 mg Tablet 500 mg PO Q8H Qty: 90 0RF Rx Instructions: Refill as per podiatry rifampin 300 mg Capsule 600 mg PO DAILY Qty: 30 0RF Rx Instructions: Refill as per podiatry Bio-K plus 50 billion cell capsule,delayed release(DR/EC) 1 cap PO DAILY Qty: 30 0RF Continued aspirin 325 mg tablet 325 mg PO DAILY PRN polyethylene glycol 3350 [Miralax] 17 gram/dose powder 17 g PO DAILY oxybutynin chloride 5 mg tablet 5 mg PO DAILY Discharge Instructions Stand Alone Forms: Portal Information Referrals: Maria Teresa Woodard DPM [[facility] STAFF PHYSICIAN, Podiatry] Referral Note: Follow-up on 02/08/2025 as scheduled Unknown,Unknown [Primary Care Provider, Unknown] Referral Note: Follow-up with PCP within 7 to 10 days Activity:: As per PRODUCTION CONTROL COORDINATOR -NWB crutches Equipment/Supplies:: Crutches Diet:: As Tolerated Discharge Orders Discharge Orders: Discharge Order (Routine); Ordered 02/03/25 Ordered By: Griselda Gamble DS: Summary Time Spent with Patient providing and/or coordinating discharge services: Greater than 30 minutes Status at Discharge Functional status at discharge: uses cane/walker (crutches) Overall status at discharge: patient is progressing back to baseline Mental Status: mental status grossly normal Speech and Movement: speech and movement normal Mood: congruent mood Affect: normal affect Exam Narrative Exam Narrative: 19 year old male looking younger than stated age, w/o acute distress,, S1, S2 regular no murmur , abdomen is non-distended , soft and non-tender, bowel sounds are present, resolving erythema to distal R foot with minimal edema - DCI dressing to wound to lateral aspect of sole below the fifth metatarsal bone with packing and mepilex - no purulence no malodor wound bed w granulation tissue no slough. Psych Mental Status: mental status grossly normal Speech and Movement: speech and movement normal Mood: congruent mood Affect: normal affect DS: Data Vitals/I&O Vitals and I&O: Vital Signs Temperature 37.2 C 02/03/25 08:08 Temperature Source Temporal Artery Scan 02/03/25 08:08 Pulse 71 02/03/25 08:08 Respiratory Rate 16 02/03/25 08:08 Respiratory Effort Normal 02/01/25 12:15 Respiratory Depth Normal 02/01/25 12:15 Respiratory Pattern Normal 02/01/25 12:15 Blood Pressure 118/60 02/03/25 08:08 Blood Pressure Mean 79 02/03/25 08:08 Pulse Oximetry 99 02/03/25 08:08 Oxygen Delivery Method Room Air 02/03/25 08:08 Oxygen Flow Rate 0 02/03/25 08:08 Pain Level 0 02/03/25 08:08 Intake & Output 02/02/25 02/02/25 02/03/25 11:59 23:59 11:59 Intake Total 100 / 880 780 / 880 510 / 510 Balance 100 / 880 780 / 880 510 / 510 Intake: IV 100 / 200 100 / 200 50 / 50 Oral 680 / 680 460 / 460 Other: Urine Color Yellow Yellow Yellow Urine Appearance Clear Clear Clear Urine Odor Normal Normal Normal Comment Voids independently in the toilet. Voids independently in the toilet. Data Completed and Pending Pending Labs at Discharge: 02/01/25 02/02/25 16:05 06:23 WBC 8.62 8.05 RBC 5.09 4.57 Hgb 14.5 13.2 L Hct 43.1 38.9 L MCV 85 85 MCH 28.5 28.9 MCHC 33.6 33.9 RDW 11.7 L 11.7 L Plt Count 308 262 MPV 8.5 8.7 Immature Gran % 0.8 1.1 Neutrophils % 71.5 62.8 Lymphocytes % 14.0 16.8 Monocytes % 5.9 6.3 Eosinophils % 6.8 11.8 Basophils % 1.0 1.2 Nucleated RBC % 0.0 0.0 Absolute Neutrophils 6.15 5.05 Absolute Lymphocytes 1.21 1.35 Absolute Monocytes 0.51 0.51 Absolute Eosinophils 0.59 0.95 H Absolute Basophils 0.09 0.10 ESR 16 H Sodium 141 142 Potassium 4.5 4.3 Chloride 104 107 Carbon Dioxide 28.6 26.7 Anion Gap 8.4 8.3 BUN 14 15 Creatinine 0.90 0.97 Est GFR (CKD-EPI 2020) 105.55 96.81 Glucose 94 92 Calcium 9.4 8.9 Total Bilirubin 0.4 AST 21 ALT 16 Alkaline Phosphatase 72 C-Reactive Protein 2.16 H 1.18 H Total Protein 8.2 Albumin 4.6 PFSH All Active Problems (Updated 02/03/25 @ 12:11 by Griselda Gamble APRN) Osteomyelitis of right foot (Acute) Cellulitis of right foot (Acute) Pes cavus of right foot (Acute) Ulcer of right foot with fat layer exposed (Acute) Open wound of right foot (Acute) Hx of spina bifida (Chronic) reports decreased sensation to feet and altered gait. Wears orthotics Social History Smoking/Tobacco Use Status: Never Smoking risk assessment performed?: Yes Alcohol Intake: current Alcohol Intake frequency: other Housing: apartment Do you feel safe at home: Yes Do you feel safe in your relationship?: Yes Time Spent with Patient Time Spent with Patient: >85 minutes Time was spent: preparing to see the patient(eg.review tests), obtaining and/or reviewing separately otained hiistory, ordering medications,tests, procedures, referring, communicating with other health career representative, indepentently interpreting results, counseling the patient, care coordination and other
[2025-02-03] MEDS: rifAMPin 300 MG CAP 600 MG PO (11:57)
[2025-02-03] MEDS: metroNIDAZOLE 500 MG/100 ML BAG 100 MG IVPB (11:57)
--- NOTE | 2025-02-03 12:09 | W.PM.PROGNOT ---
Date of Service Date of service: 02/03/25 Time of Service: 12:09 Assessment and Plan Assessment and plan (1) Osteomyelitis of right foot: Status: Acute Assessment and plan: Patient is a 19-year-old male who presents for ongoing evaluation of a wound of his right foot. He has undergone previous debridement and cultures showing pansensitive staph. He was admitted to the hospital given concern for ongoing erythema and edema of the foot related to this wound. He remains afebrile and hemodynamically stable. On exam the erythema and edema of the dorsal aspect of the foot is much improved this morning. He did have an MRI concerning for osteomyelitis. His case was discussed with orthopedics who did not feel as though further debridement was necessary at this time and to continue antibiotics and local wound care and monitor closely. Given improvement in the surrounding cellulitis he is stable for discharge home today with ongoing wound care and antibiotics. He was comfortable with performing BID dressing changes at home and instructed on these today. He will follow up with podiatry next week for ongoing evaluation. He will contact the surgery office in the interim if he has any questions or concerns or his condition worsens. (2) Cellulitis of right foot: Status: Acute Subjective Subjective Interval history since last seen: He notes he is doing well today. He states his foot looks much better. He denies fevers or chills. He does state he is able to do his dressing changes at home. Exam Narrative Exam Narrative: General: Well appearing, no acute distress. Skin: Good turgor HEENT: Normocephalic, atraumatic CV: Regular rate Lungs: Bilateral equal chest rise, non-labored breathing Extremities: Warm, well perfused, right foot wound on plantar aspect of 5th metatarsal with dressing in place, minimal surrounding erythema of dorsal aspect of foot Psychiatric: Alert and oriented, normal mood and affect Objective Last Vital Signs Temp 37.2 C 02/03/25 08:08 Pulse 71 02/03/25 08:08 Resp 16 02/03/25 08:08 BP 118/60 02/03/25 08:08 Pulse Ox 99 02/03/25 08:08 PAWSS Have you Been Recently Intoxicated or Drunk Within the Last 30 days?: No Have you Ever Experienced Previous Episodes of Alcohol Withdrawal?: No Have you ever Experienced Withdrawal Seizures?: No Have you ever Experienced Delirium Tremens(DT)s?: No Have you ever undergone Alcohol Rehabilitation Treatment (i.e, inpt ot outpatient treatment programs)?: No Have you ever Experienced Blackouts?: No Have you ever Combined Alcohol with other Downers within the last 90 days?: No Have you ever Combined Alcohol with any other Substance of Abuse during the last 90 days?: No Positive Blood Alcohol level on Presentation? [PCS.BAL]: No Evidence of Increased Autonomic Activity (i.e. HR>120, tremor, sweating, agitation, nausea)?: No Result: 0 VTE Prohylaxis Risk Level: Moderate/High Risk Contraindications: None Prophylaxis: Pharmacologic (LMW heparin for primary VTE prevention in low-weight patients (=55 kg or body mass index [BMI] <18 kg/m2) as per UTD) Time Spent with Patient Time Spent with Patient: <25 minutes Time was spent: preparing to see the patient(eg.review tests), obtaining and/or reviewing separately otained hiistory and counseling the patient
== END 2025-02-03 13:10 | disposition home or self-care (01) | DRG 540 ==
PROVIDERS: Student in an Organized Health Care Education/Training Program; Admitting Provider Family Medicine; Responsible Provider Nurse Practitioner Acute Care; Visit Provider Family Medicine
DX: M86.171 Other acute osteomyelitis, right ankle and foot (principal); L03.115 Cellulitis of right lower limb; L97.412 Non-pressure chronic ulcer of right heel and midfoot with fat layer exposed; Q05.9 Spina bifida, unspecified; B95.61 Methicillin susceptible Staphylococcus aureus infection as the cause of diseases classified elsewhere; Q66.71 Congenital pes cavus, right foot; R26.89 Other abnormalities of gait and mobility; R20.2 Paresthesia of skin
CPT/HCPCS: 00123; 36415; 80048; 80053; 85652; 73720; 85025; 86140; 99223; 99233; 99239; J0690; J1650; J1836; J2543